=== PATIENT | male | born 1950 | race Caucasian/White ===

== ENCOUNTER 2019-04-20 18:05 | Emergency (ER) | payer MEDICAID ==
[~2019-04-20] VITALS: Ht 162.6 cm; Wt 70.3 kg
--- NOTE | 2019-04-20 18:15 | NUR ---
PT TO ED BED 09 C/O R EYE BLURRING OF VISOIN X 1 WEEK. PT DENIES CHEST PAIN OR SOB. NO SLURRING OF SPEECH PER FAMILY, NO UNILATERAL WEAKNESS OBSERVED. PT IS CROATIAN SPEAKING. AAOX3. PLACED ON MONITOR. STABLE VITALS. AWAITING MD PECK.
--- NOTE | 2019-04-20 18:17 | NUR ---
Gio baig in [facility] - 04/20/19 at [address] STEPHENS AT [facility] FOR
--- NOTE | 2019-04-20 18:34 | NUR ---
IV LINE STATARTED. BLOOD DRAWN AND SENT TO LAB.
--- NOTE | 2019-04-20 18:35 | NUR ---
DR STEPHENS AT BEDSIDE FOR EVAL.
[2019-04-20 18:40] LABS: BASOPHILS # (AUTO) 0.1 /CMM (0.0-0.2); BASOPHILS % (AUTO) 1.1 % (0.0-2.0); EOSINOPHILS % (AUTO) 3.1 % (0.0-6.0); HEMATOCRIT 40 % (39-51); HEMOGLOBIN 13.2 g/dL (13.5-17.5); LYMPHOCYTES # (AUTO) 2.2 /CMM (0.8-4.8); LYMPHOCYTES % (AUTO) 21.3 % (20.0-44.0); MEAN CORPUSCULAR HGB CONC 33 g/dl (31.0-36.0); MEAN CORPUSCULAR VOLUME 79 fL (80-96); MONOCYTES # (AUTO) 0.6 /CMM (0.1-1.30); MONOCYTES % (AUTO) 6.1 % (2.0-12.0); NEUTROPHILS # (AUTO) 6.9 /CMM (1.8-8.9); NEUTROPHILS % (AUTO) 68.4 % (43.0-81.0); PLATELET COUNT (AUTO) 225 /CMM (150-450); RED BLOOD CELL COUNT(AUTO) 5.02 MIL/uL (4.5-6.0); WHITE BLOOD COUNT (AUTO) 10.2 K/uL (4.3-11.0)
[2019-04-20 18:48] LABS: CALCIUM, SERUM 8.7 mg/dL (8.5-10.1); CREATININE 0.7 mg/dL (0.6-1.3)
--- NOTE | 2019-04-20 19:19 | NUR ---
REPORT TO RAQUEL SMITH RN FOR ADDIE.
--- NOTE | 2019-04-20 20:46 | NUR ---
BED 104
[2019-04-20] MEDS ORDERED: predniSONE 20 MG TABLET PO ONE (21:00)
[2019-04-20] MEDS ORDERED: predniSONE 20 MG TABLET ONE (21:10)
[2019-04-20 23:23] VITALS: BP 141/71
== END 2019-04-20 23:25 | disposition left against medical advice (07) ==
LOC: ER 18:09
DX: H53.2 Diplopia (principal); I10 Essential (primary) hypertension; E66.9 Obesity, unspecified; Z68.26 Body mass index [BMI] 26.0-26.9, adult
CPT/HCPCS: 36415; 70450; 71045; 80048; 85025; 85652; 93005; 99284; J7512